=== PATIENT | male | born 1985 | race Caucasian/White ===

== ENCOUNTER 2017-08-10 03:10 | Observation (INO) ==
[2017-08-10] MEDS ORDERED: 0.9 % Sodium Chloride 1,000 ML ONE (03:21)
[2017-08-10] MEDS ORDERED: PROCAINAMIDE IVPB ONE (03:27)
[2017-08-10] MEDS ORDERED: D5 IVPB ONE (03:27)
[2017-08-10] MEDS ORDERED: WATER IVPB ONE (03:27)
[2017-08-10] MEDS ORDERED: 0.9 % Sodium Chloride 1,000 ML IVC ONE (03:31)
[2017-08-10] MEDS ORDERED: Ondansetron 4 MG/2 ML VIAL IVP ONE (03:38)
[2017-08-10] MEDS ORDERED: Ondansetron 4 MG/2 ML VIAL ONE (03:39)
[2017-08-10 04:11] LABS: Basophils # 0.1 K/mcL (0.0-0.2); Basophils % 0.4 %; Eosinophils # 0.4 K/mcL (0.0-0.6); Eosinophils % 2.7 %; Hematocrit 41.6 % (37.5-50.1); Hemoglobin 12.8 g/dL (12.9-16.9); Immature Granulocytes % 0.5 % (0-4); Lymphocytes # 4.3 K/mcL (0.6-4.6); Mean Corpuscular HGB Conc 30.8 g/dL (31.6-35.5); Mean Corpuscular Hemoglobin 21.1 pg (28.0-33.3); Mean Corpuscular Volume 68.6 fL (83.0-100.0); Mean Platelet Volume 10.2 fL (9.4-12.4); Monocytes # 1.1 K/mcL (0.0-1.3); Monocytes % 8.4 %; Neutrophils # 7.6 K/mcL (1.6-8.9); Platelet Count 398 K/mcL (140-400); Red Blood Count 6.06 M/mcL (4.19-5.50); Red Cell Distribution Width 18.8 % (11.5-14.5)
[2017-08-10 04:24] LABS: INR 1.2; Prothrombin Time 12.8 Seconds (9.4-12.1)
[2017-08-10 04:25] LABS: Anisocytosis 1+ (Not Present); Hypochromasia Present (Not Present); Microcytosis Present (Not Present); Platelet Estimate Normal (Normal); Reactive Lymphocytes Present (Not Present)
[2017-08-10 04:27] LABS: Activated Partial Thrombo Time 42.2 Seconds (26.0-36.0)
[2017-08-10 04:30] LABS: Troponin I < 0.03 ng/mL (< 0.04)
[2017-08-10 04:31] LABS: BUN/Creatinine Ratio 15 (6-26); Blood Urea Nitrogen 17 mg/dL (6-20); Calcium 9.1 mg/dL (8.6-10.3); Carbon Dioxide 20 mEq/L (23-29); Chloride 104 mEq/L (98-107); Glucose 110 mg/dL (70-105); Magnesium 1.7 mg/dL (1.6-2.6); Osmolality,Calculated 286 (280-300); Sodium 137 mEq/L (136-145); eGFR For African Americans > 60 (> 60); eGFR For Non-African Americans > 60 (> 60)
--- NOTE | 2017-08-10 04:46 | Emergency Department Note ---
Disposition Clinical Impression: Paroxysmal SVT (supraventricular tachycardia), Hypokalemia Disposition: Admitted As Inpatient Condition: Fair General Adult HPI - General Chief complaint: ED Arrhythmia/Palpitations Stated complaint: SVT Time Seen by Provider: 08/10/17 03:25 Source: patient Limitations: no limitations Nursing Notes Reviewed: Yes Vital Signs Reviewed: Yes - History of Present Illness Pain Scale: 0 - Related Data Home Medications Medication Instructions Recorded Confirmed raNITIdine HCl [Zantac] 150 mg PO DAILY 08/10/17 08/10/17 Allergies Allergy/AdvReac Type Severity Reaction Status Date / Time No Known Allergies Allergy Verified 10/27/15 07:36 Past Medical History - Past Medical History Medical history: Reports: GERD, other Surgical history: Reports: other Psychiatric history: Reports: no psych history - Social History Smoking Status: Light tobacco smoker Alcohol use: Reports: none Drug use: Reports: none Physical Exam - General Limitations: no limitations General appearance: alert Course Vital Signs Temperature 97.4 F L 08/10/17 03:28 Pulse Rate 133 08/10/17 03:28 Respiratory Rate 20 08/10/17 03:28 Blood Pressure 123/81 08/10/17 03:28 O2 Sat by Pulse Oximetry 100 08/10/17 03:28 Temperature 99 F 08/10/17 07:13 Pulse Rate 97 08/10/17 07:13 Respiratory Rate 16 08/10/17 07:13 Blood Pressure 130/83 08/10/17 07:13 O2 Sat by Pulse Oximetry 100 08/10/17 07:13 Oxygen Delivery Oxygen Delivery Nasal Cannula Medical Decision Making - Lab Data Result diagrams: 08/10/17 03:24 08/10/17 03:24 Lab Results 08/10/17 08/10/17 08/10/17 Range/Units 03:24 03:24 03:24 WBC 13.5 H (4.3-11.1) K/mcL RBC 6.06 H (4.19-5.50) M/mcL Hgb 12.8 L (12.9-16.9) g/dL Hct 41.6 (37.5-50.1) % MCV 68.6 L (83.0-100.0) fL MCH 21.1 L (28.0-33.3) pg MCHC 30.8 L (31.6-35.5) g/dL RDW 18.8 H (11.5-14.5) % Plt Count 398 (140-400) K/mcL MPV 10.2 (9.4-12.4) fL Immature Gran % 0.5 (0-4) % Seg Neutrophils % 56.0 % Lymphocytes % 32.0 % Monocytes % 8.4 % Eosinophils % 2.7 % Basophils % 0.4 % Neutrophils # 7.6 (1.6-8.9) K/mcL Lymphocytes # 4.3 (0.6-4.6) K/mcL Monocytes # 1.1 (0.0-1.3) K/mcL Eosinophils # 0.4 (0.0-0.6) K/mcL Basophils # 0.1 (0.0-0.2) K/mcL Reactive Lymphocytes Present A (Not Present) Platelet Estimate Normal (Normal) Hypochromasia Present A (Not Present) Anisocytosis 1+ A (Not Present) Microcytosis Present A (Not Present) PT 12.8 H (9.4-12.1) Seconds INR 1.2 APTT 42.2 H (26.0-36.0) Seconds Sodium 137 (136-145) mEq/L Potassium 3.0 L (3.5-5.1) mEq/L Chloride 104 (98-107) mEq/L Carbon Dioxide 20 L (23-29) mEq/L BUN 17 (6-20) mg/dL Creatinine 1.17 (0.70-1.30) mg/dL Est GFR ( Amer) > 60 (> 60) Est GFR (Non-Af Amer) > 60 (> 60) BUN/Creatinine Ratio 15 (6-26) Glucose 110 H (70-105) mg/dL Calculated Osmolality 286 (280-300) Calcium 9.1 (8.6-10.3) mg/dL Magnesium 1.7 (1.6-2.6) mg/dL Troponin I < 0.03 (< 0.04) ng/mL TSH 3.620 (0.340-5.600) mcIU/mL Critical Care Time Critical Care Time: Yes Total Critical Care Time: 60 Attestation: Critical care performed: Time is exclusive of separately billable procedures. Time includes: direct patient care, patient reassessment, coordination of patient care, interpretation of data (laboratory data, radiology data, and respiratory data), review of patient's medical records, medical consultation and documentation of patient care. Procedures included in critical care time: Procedures excluded from critical care time: Attestation Statement - Attestation Attestation: I, Nuno Morales MD, personally evaluated this patient and discussed their management with the resident physician. I reviewed the resident's note and agree with the documented findings, medical decision making, and plan of care. 31-year-old male presents to the emergency department for palpitations which started about one hour prior to arrival while patient was sitting at his computer. He states he went to the bathroom and he became very weak and faint and lightheaded and had to lie in the floor. She denies any actual syncope. He does complain of some pressure in his chest. Some diaphoresis. Mild shortness of breath. No prior diagnosis of any hypertension or heart disease. He does have Crohn's disease. He states he has a history of palpitations in the past with his heart racing but it normally only last a brief time and resolved. On examination patient is a well-developed obese male in mild distress. He is pale and mildly diaphoretic. No cyanosis. He is alert and oriented 3. Chest is nontender to palpation. Breath sounds are clear and equal bilaterally. Heart is markedly tachycardic and slightly irregular. Abdomen soft and nontender with normal bowel sounds. No pedal edema. Labs reviewed. Troponin normal. TSH normal. Chest x-ray shows cardiomegaly with clear lungs. Initial EKG shows what appears to be a sinus tachycardia with PACs and intermittent atrial fibrillation. Ventricular rate 116. No acute ischemic changes. On the air compressor engineer the patient's heart rate varied from 122 about 240. There appeared to be 3 separate complex morphologies. He had what appeared to be a narrow complex QRS with P waves. He also then appeared to have a narrow complex tachycardia which looks like SVT. He also intermittently had a wide- complex tachycardia which looked like ventricular tachycardia. Patient's blood pressure was stable on arrival and remained stable. Oxygen saturation 100%. Patient was given procainamide had a loading rate of 20 mg/m. Within a very short time his rhythm became much more regular with a sinus tachycardia with a ventricular rate around 105-110. The procainamide infusion was decreased down to 4 mg/m and titrated down to 1 mg/m. Dr. Armstrong discussed the case and the EKG and monitor tracings with the customer services manager conservation biology professor, Dr. Ken. The hospitalist, Dr. White, was consulted and accepted admission of the patient.
--- NOTE | 2017-08-10 04:48 | Emergency Department Note ---
Disposition Clinical Impression: Paroxysmal SVT (supraventricular tachycardia), Hypokalemia Disposition: Admitted As Inpatient Condition: Fair Time of Disposition: 04:52 Arrhythmia/Palpitations HPI - General Chief Complaint: ED Arrhythmia/Palpitations Stated Complaint: SVT Time Seen by Provider: 08/10/17 03:25 Source: patient Limitations: no limitations Nursing Notes Reviewed: Yes Vital Signs Reviewed: Yes - History of Present Illness HPI Narrative: Patient is a 31-year-old male who presents to [facility] ED with a chief complaint of heart racing. States he started having symptoms right around 2 AM. Admits to some nausea and dry heaving. No chest pain or difficulty breathing or abdominal pain. No problems with urination or bowel movements. States he has intermittently has had these symptoms in the past. However he has never been diagnosed with anything. States it usually goes away after a few seconds at this time has persisted. Patient states he did drink an energy drink at 10 AM yesterday. Denies any consumption of illicit drugs. Pt Subjective Complaint: "heart racing" Onset (ago): hour(s) Duration: intermittent Severity: moderate Context: occurred during rest Associated symptoms: Denies: chest pain, shortness of breath, nausea, vomiting - Related Data Home Medications Medication Instructions Recorded Confirmed raNITIdine HCl [Zantac] 150 mg PO DAILY 08/10/17 08/10/17 Allergies Allergy/AdvReac Type Severity Reaction Status Date / Time No Known Allergies Allergy Verified 10/27/15 07:36 All systems ED: reviewed and negative except as stated. Past Medical History - Past Medical History Attestation: Yes The following information was validated with the patient. Source: patient Medical history: Reports: GERD, other (Crohns) Surgical history: Reports: other Psychiatric history: Reports: no psych history - Social History Smoking Status: Light tobacco smoker Alcohol use: Reports: none Drug use: Reports: none Physical Exam - General Limitations: no limitations General appearance: alert - Head Head exam: atraumatic, normocephalic, normal inspection - Eye Eye exam: Present: normal appearance, PERRL, EOMI - ENT ENT exam: normal exam, normal oropharynx, mucous membranes moist - Neck Neck exam: Present: normal inspection, full ROM, trachea midline - Chest Chest inspection: Present: normal inspection, symmetric chest wall rise - Respiratory Respiratory exam: Present: normal lung sounds bilaterally - Cardiovascular Cardiovascular exam: Present: tachycardia, irregular rhythm - Abdominal Exam Abdominal exam: Present: soft, Non-Tender. Absent: tenderness, distention, guarding, rebound, rigidity - Extremities Exam Extremities exam: Present: normal inspection, full ROM. Absent: tenderness, pedal edema - Neurological Exam Neurological exam: Present: alert, oriented X3 - Psychiatric Psychiatric exam: Present: normal affect, normal mood - Skin Skin exam: Present: warm, dry, intact, normal color Course Course Narrative: Patient seen and examined. Upon my examination of the patient, he is going in and out of a narrow complex tachycardia. It appears to be paroxysmal SVT at times but then the QRS seems to white in at times as well. Then there are times where it is sinus tachycardia. Patient does feel poorly with lightheadedness feeling like he is about pass out whenever he goes into the tachyarrhythmia. With his initial EKG, there is some concern that there could be some upsloping of a delta wave. The decision was made to give procainamide. A 1000 mg initial dose was ordered. He was given 100 mg at a time over the course of 5 minutes. He received approximately 200 mg before we slowed this down to a 4 mg/m drip. I did discuss the dosing with the pharmacist Daquan. I also discussed the patient's management with booth manager Dr. Ken and sent him images of the EKGs and rhythm strips.. Patient's arrhythmia seemed to stabilize as a sinus tachycardia with a rate in the low 100s. Patient feeling much better as well. Patient's blood pressure stable with systolic of 120s. Per Dr. Ken, he recommends weaning off the procainamide though we can leave a dose of 1 mg/m if needed. Cardiopulmonary workup pending - Reevaluation(s) Reevaluation #1: Lab work does show a low potassium of 3.0. 40 mEq of potassium ordered. I discussed the case with hospitalist Dr. White who has accepted patient for admission. Time: 04:50 Vital Signs Temperature 97.4 F L 08/10/17 03:28 Pulse Rate 133 08/10/17 03:28 Respiratory Rate 20 08/10/17 03:28 Blood Pressure 123/81 08/10/17 03:28 O2 Sat by Pulse Oximetry 100 08/10/17 03:28 Temperature 98.3 F 08/10/17 05:41 Pulse Rate 87 08/10/17 05:41 Respiratory Rate 18 08/10/17 05:41 Blood Pressure 121/80 08/10/17 05:41 O2 Sat by Pulse Oximetry 100 08/10/17 05:41 Oxygen Delivery Oxygen Delivery Nasal Cannula Arrhythmia/Palpitations - Medical Records Medical records reviewed: Yes I reviewed the patient's medical records. - Lab Data Lab results reviewed: Yes I reviewed the patient's lab results. Result diagrams: 08/10/17 03:24 08/10/17 03:24 Lab Results 08/10/17 08/10/17 08/10/17 Range/Units 03:24 03:24 03:24 WBC 13.5 H (4.3-11.1) K/mcL RBC 6.06 H (4.19-5.50) M/mcL Hgb 12.8 L (12.9-16.9) g/dL Hct 41.6 (37.5-50.1) % MCV 68.6 L (83.0-100.0) fL MCH 21.1 L (28.0-33.3) pg MCHC 30.8 L (31.6-35.5) g/dL RDW 18.8 H (11.5-14.5) % Plt Count 398 (140-400) K/mcL MPV 10.2 (9.4-12.4) fL Immature Gran % 0.5 (0-4) % Seg Neutrophils % 56.0 % Lymphocytes % 32.0 % Monocytes % 8.4 % Eosinophils % 2.7 % Basophils % 0.4 % Neutrophils # 7.6 (1.6-8.9) K/mcL Lymphocytes # 4.3 (0.6-4.6) K/mcL Monocytes # 1.1 (0.0-1.3) K/mcL Eosinophils # 0.4 (0.0-0.6) K/mcL Basophils # 0.1 (0.0-0.2) K/mcL Reactive Lymphocytes Present A (Not Present) Platelet Estimate Normal (Normal) Hypochromasia Present A (Not Present) Anisocytosis 1+ A (Not Present) Microcytosis Present A (Not Present) PT 12.8 H (9.4-12.1) Seconds INR 1.2 APTT 42.2 H (26.0-36.0) Seconds Sodium 137 (136-145) mEq/L Potassium 3.0 L (3.5-5.1) mEq/L Chloride 104 (98-107) mEq/L Carbon Dioxide 20 L (23-29) mEq/L BUN 17 (6-20) mg/dL Creatinine 1.17 (0.70-1.30) mg/dL Est GFR ( Amer) > 60 (> 60) Est GFR (Non-Af Amer) > 60 (> 60) BUN/Creatinine Ratio 15 (6-26) Glucose 110 H (70-105) mg/dL Calculated Osmolality 286 (280-300) Calcium 9.1 (8.6-10.3) mg/dL Magnesium 1.7 (1.6-2.6) mg/dL Troponin I < 0.03 (< 0.04) ng/mL TSH 3.620 (0.340-5.600) mcIU/mL - Radiology Data Radiology results reviewed: Yes I reviewed the patient's radiology results. Chest X-Ray 08/10/17 03:31 IMPRESSION: Cardiomegaly with clear lungs. D/ / Addy Yung MD / Addy Yung MD Interpreting Provider: Addy Yung MD - EKG Data EKG attestation: Yes I reviewed and interpreted this EKG. EKG results narrative: EKG done at 311 shows sinus tachycardia with occasional narrow complex tachycardia that is intermittent. No acute ST elevation or depression noted. Normal axis. Possible delta wave noted in lead aVF. Repeat EKG done at 357 shows sinus tachycardia with a rate of [address] elevation or depression. Normal axis. Q waves noted in lead 3.
[2017-08-10] MEDS ORDERED: Acetaminophen 325 MG TABLET PO PRN (05:47)
[2017-08-10] MEDS ORDERED: Naloxone 0.4 MG/ML INJ IVP PRN (05:47)
[2017-08-10] MEDS ORDERED: D5 IVC SCH (06:00)
[2017-08-10] MEDS ORDERED: WATER IVC SCH (06:00)
[2017-08-10] MEDS ORDERED: PROCAINAMIDE IVC SCH (06:00)
--- NOTE | 2017-08-10 06:07 | Internal Med History&Physical ---
Date of Encounter: 08/10/17 Time of Encounter: 05:00 Internal Medicine - H&P: HPI Chief complaint: Palpitation Admitted From: Home Plans for Post Hospital Care: Home History of present illness: Mr. Mcrae is a 31 year old male presented to ER for sudden onset palpitation since 2 AM this morning. Past medical history is significant for Crohn disease. Patient said since 2 AM this morning he suddenly have palpitation with heart rate around 200. Patient failed business, nausea, and vomited several times. The vomiting are clear liquid, no dark color or blood in it. EMS was called and the patient was sent to ER. Patient denies recent runny nose, sore throat, cough, or fever. In the emergency room, patient wa found narrow QRS tachycardia. Suggest SVT. Cardiology was consult. Patient was started on procainamide IV. His heart rate slowed down and the shows sinus rhythm on monitoring and the patient feels much better. Patient was admitted for further management. Past Med Surg Social Fam HX - Past Medical History Medical history: GERD, other (Crohns) Additional medical history: Crohns Diseas Psychiatric history: no psych history - Past Surgical History Surgical History: other Additional surgical history: cyst removed from tailbone, colonoscopy - Social History Smoking Status: Light tobacco smoker Alcohol use: none Drug use: none - Family History Mother History Unknown: Yes Internal Medicine - H&P: Meds raNITIdine HCl [Zantac] 150 mg PO DAILY 08/10/17 [History] 3 Allergy/AdvReac Type Severity Reaction Status Date / Time No Known Allergies Allergy Verified 10/27/15 07:36 All Systems PM: A 10-system review of systems was performed and is negative for pertinent findings except as documented above in the HPI. - Constitutional Vitals: Temp Pulse Resp BP Pulse Ox 98.3 F 87 18 121/80 100 08/10/17 05:41 08/10/17 05:41 08/10/17 05:41 08/10/17 05:41 08/10/17 05:41 General appearance: Present: A&O X 3, no acute distress, answers questions appropriately - Head Head exam: Present: atraumatic, normocephalic - Eye Eye exam: Present: PERRL, conjuntiva pink, sclera anicteric Pupils: Present: PERRL - Neck Neck exam general surgery: Present: supple, trachea midline. Absent: lymphadenopathy - Respiratory Respiratory exam: Present: CTAB. Absent: accessory muscle use, rales, rhonchi, wheezes - Cardiovascular Cardiovascular exam: Present: RRR, +S1, +S2, tachycardia. Absent: diastolic murmur, gallop, rubs, systolic murmur - GI/Abdominal GI/Abdominal exam: Present: normal bowel sounds, soft, no peritoneal signs. Absent: distended, tenderness - Extremities Exam Extremities exam: Present: warm, radial pulses palpable and symmetrical. Absent : calf tenderness, cyanotic, pedal edema - Neurological Exam Neurological exam: Present: CN II-XII intact, oriented X3, no focal deficits. Absent: pronater drift, facial droop, speech deficit - Skin Skin exam: Present: dry, intact Internal Med - H&P Results - Labs CBC & Chem 7: 08/10/17 03:24 08/10/17 03:24 - Assessment and plan (1) DVT prophylaxis Current Visit: Yes Status: Acute Assessment and plan: EPCDs (2) Crohn disease Current Visit: Yes Status: Acute Assessment and plan: Continue outpatient follow-up Qualifiers: Gastrointestinal tract location: unspecified location Digestive disease complication type: without complication Qualified Code(s): K50.90 - Crohn's disease, unspecified, without complications (3) Hypokalemia Current Visit: Yes Status: Acute Assessment and plan: Probably due to chronic diarrhea caused by crohn disease. Supplement 40 mEq has been given by ER. Will give another 40mEq after 3 hours (4) Paroxysmal SVT (supraventricular tachycardia) Current Visit: Yes Status: Acute Assessment and plan: Etiology is undetermined. Patient said he has palpitation and near syncope when he is 20-year-old. Patient denies family history of heart disease. - Place patient on continuous cardiac monitoring. - Continue procainamide drip at maintenance dose at 1 mg/min. - Echocardiogram - Correct electrolytes abnormality - Consult cardiology - Time Spent With Patient Total time spent is greater than 50% in coordination of care (as documented) at patient's floor/unit and/or counseling patient: 40 minutes Greater than 35 minutes
[2017-08-10] MEDS: Famotidine 20 MG TABLET PO SCH (07:52)
[2017-08-10] MEDS: Ondansetron 4 MG/2 ML VIAL IVP PRN ×2 (08:53→22:13)
--- NOTE | 2017-08-10 09:59 | Event Note ---
Date of Encounter: 08/10/17 Time of Encounter: 10:00 Seen and assessed. Agree with plan per night time hospitalist. 1.Admitted overnight for PSVT and started on procainamide drip. HR currrently in the low 100s. F/U 2D echo and cardiology recs 2. Also noted to have nausea and vomiting with leukocytosis possibly 2/2 to acute gastroenteritis. Administer IV fluids, start on IV metronidazole. Obtain blood cultures 3. Severe dehydration may be related to crohn's which patient says he 's not getting treated for due to no insurance. GI consult, obtain CT abdomen, start on IV steroids
[2017-08-10] MEDS ORDERED: Isovue-370 500 ML INFUS..BTL IV ONE (10:21)
[2017-08-10] MEDS: MethylPREDNISolone 40 MG/ML VIAL IVP SCH (11:54)
[2017-08-10] MEDS: 0.9 % Sodium Chloride 1,000 ML IVC SCH (11:55)
--- NOTE | 2017-08-10 11:55 | Cardiology Consult Note ---
Date of Encounter: 08/10/17 Time of Encounter: 11:52 Assessment and Plan (1) Paroxysmal SVT (supraventricular tachycardia) Current Visit: Yes Status: Acute PSVT in the setting of untreated Crohn's disease with associated chronic diarrhea. Presents with electrolyte abnormalities. In addition, patient has been drinking at least one energy drink per day over the last few weeks. Suspect SVT is worsened by all of these other features. Discussed the importance of treating Crohn's disease/improving diarrhea/ stabilizing electrolytes will help to minimize episodes of SVT. Patient strongly encouraged to minimize caffeine consumption and stop drinking energy drinks. Hydration with water or Gatorade encouraged. Stop procainamide. Start low-dose Cardizem CD 120 mg daily. Case discussed with IM. Recommend hydration, GI evaluation for Crohn's disease , replacement of electrolytes. Check TTE. We will continue to monitor. Discussion w patient/family: The assessment and plan as outlined above was discussed with the patient and/or family members who expressed understanding and agreement. All questions were answered. Thank you for involving us in the care of your patient. Please call with any questions. History of Present Illness Consult date: 08/10/17 Requesting physician: Court White Consult reason: Arrhythmia Chief complaint: Palpitations, diarrhea History of present illness: Mr. Mcrae is a 31 year old male with a history of untreated Crohn's disease. Reports up to 10 episodes of diarrhea per day. Unable to leave house or maintain a job due to diarrhea. Describes drinking 4-6 glasses of fluid per day. Reports drinking energy drinks on occasion, but has been drinking at least one per day over the last 12 days. Yesterday, noticed sudden palpitations. Describes several events over a short period of time. Describes associated lightheadedness, but no syncope. Describes discomfort in his chest during periods of tachycardia. Noted hypokalemia, hypomagnesemia. In the ER, noted to have periods of tachycardia arrhythmias. ER doctors started procainamide which seemed to improve his symptoms. Upon my review, patient demonstrates sinus rhythm with frequent periods of SVT, probable atrial tachycardia. 2 episodes of wide complex arrhythmias noted, possibly SVT with aberration, but cannot exclude NSVT. Past Med Surg Social Fam HX - Past Medical History Medical history: GERD, other Additional medical history: Crohns Diseas Psychiatric history: no psych history - Past Surgical History Surgical History: other Additional surgical history: cyst removed from tailbone, colonoscopy - Social History Smoking Status: Light tobacco smoker Alcohol use: none Drug use: none - Family History Mother History Unknown: Yes Medications and Allergies raNITIdine HCl [Zantac] 150 mg PO DAILY 08/10/17 [History] 3 Allergy/AdvReac Type Severity Reaction Status Date / Time No Known Allergies Allergy Verified 10/27/15 07:36 All Systems Review: The remainder of the systems were reviewed and are negative - Constitutional Constitutional: anorexia, fatigue, weakness - Cardiovascular Cardiovascular: as per HPI, lightheadedness, palpitations, rapid heart rate - Gastrointestinal Gastrointestinal: abdominal pain, diarrhea Physical Examination General: Conversant, No Apparent Distress HEENT: Atraumatic, Normocephaly, Mucus Membranes Moist Neck: No JVD, Normal carotid pulses Cardiac: Reg Rate and Rhythm, Normal S1 and S2, No Murmur Lungs: Normal Breath Sounds, No Wheeze, Rales, Rhonchi Neuro: Alert and responsive, No focal deficits noted Abdomen: Soft, Non-Tender, Other (Obese) Skin: No rashes noted on visualized skin Musculoskeletal: No Chest Wall Tenderness Extremities: No Clubbing, No Edema, Normal Pulses Results 08/10/17 03:24 08/10/17 03:24 - EKG Interpretation EKG results cardiology: personally reviewed Consult Discharge Plan - Plan Referrals: NONE,PCP [Primary Care Provider] -
--- NOTE | 2017-08-10 12:15 | Gastroenterology Consult Note ---
Date of Encounter: 08/10/17 Time of Encounter: 12:00 - Assessment and plan (1) Crohn disease Current Visit: Yes Status: Acute Assessment and plan: Patient with questionable of a history of Crohn disease currently not on any medication because of not working and not having insurance. He has 10-15 bowel movements but for the last few years. Colonoscopy by Dr. Bates in 2015 showed inflammation from the sigmoid colon to the cecum and also in the terminal ileum and the biopsy showing chronic inflammation suspicious for Crohn. Diarrhea did responded to steroids in the past but not budesonide. Currently not on any medication. Recommendation: IV steroids and once related to be discharged then switched to oral and follow with GI as an outpatient he will need a colonoscopy repeat with TI examination and possible capsule endoscopy. Qualifiers: Gastrointestinal tract location: unspecified location Digestive disease complication type: without complication Qualified Code(s): K50.90 - Crohn's disease, unspecified, without complications (2) Anemia Current Visit: Yes Status: Acute Assessment and plan: Patient hemoglobin is around 12 and his MCV is also low we will check iron panel along with ferritin. Qualifiers: Anemia type: iron deficiency Qualified Code(s): D50.0 - Iron deficiency anemia secondary to blood loss (chronic) - Time Spent With Patient Total time spent is greater than 50% in coordination of care (as documented) at patient's floor/unit and/or counseling patient: GI History of Present Illness - Data of Consult Requesting Physician: Court White MD - Consult Narrative Reason for consult: Crohn's flare History of present illness: Mr. Mcrae is a 31 year old male admitted because of SVT episode with the near -syncope. being seen by cardiology. Patient with questionable history of Crohn disease .Endoscopy in October [address] Bates showed Inflammation from the sigmoid colon to the cecum.Biopsies of small bowel and colon showed acute and chronic inflammation. Then was treated with prednisone did offer relief but he states he experienced chest pain. B ASCA and ANCA were negative. Stool calpo more than 600 and is a celiac panel was negative. Has been tried symptomatically for the diarrhea with cholestyramine and also Bentyl. Per patient because of no insurance and not working he currently is not on any medication. Currently is having 10-15 bowel movements a day and he does has some blood in his stool which he contributes to have his hemorrhoids. Does complain of having some abdominal discomfort. Last night he had an episode where he felt that his heart was racing he was about to pass out and he called an ambulance and ended up coming to the hospital. Per The patient on and off he is having these episodes where he feels like his heart is racing Past Med Surg Social Fam HX - Past Medical History Medical history: GERD, other Additional medical history: Crohns Diseas Psychiatric history: no psych history - Past Surgical History Surgical History: other Additional surgical history: cyst removed from tailbone, colonoscopy - Social History Smoking Status: Light tobacco smoker Alcohol use: none Drug use: none - Family History Mother History Unknown: Yes Review of Systems: GI: as per JAMUL GENERAL: denies fever, EYES: denies yellow discoloration ENT: some discomfort with swallowing CARDIO: as per JAMUL RESP: Shortness of breath last night when his heart was racing : denies change in color of urine NEURO: denies any weakness HEME: Denies any bruising MS: Does complain of chronic arthralgia but per patient that is probably because of his weight DERM: denies rash or itching PSYCH: Denies history of anxiety or depression - Constitutional Vitals: Temp Pulse Resp BP Pulse Ox 99.6 F 99 16 128/86 99 08/10/17 11:58 08/10/17 11:58 08/10/17 11:58 08/10/17 11:58 08/10/17 11:58 Exam: CONSTITUTIONAL:~alert, no acute distress.~HEAD:~normocephalic.~EYES:~no jaundice.~NECK:~no obvious swelling.~HEART:~regular rate and rhythm, no murmurs. ~LUNGS:~bilateral good air entry.~ABDOMEN:~non distended, soft, non tander, no masses pulpable, no organomegaly.~RECTAL EXAM:~Deferred.~EXTREMITIES:~no clubbing, cyanosis or edema.~SKIN:~no stigmata of chronic liver disease.~ NEUROLOGIC:~no obvious focal defect.~~~~ Results - Labs CBC & Chem 7: 08/10/17 03:24 08/10/17 03:24 Labs: Last Result Calcium 9.1 mg/dL (8.6-10.3) 08/10/17 03:24 Troponin I < 0.03 ng/mL (< 0.04) 08/10/17 03:24 Entire Visit Hgb 12.8 g/dL (12.9-16.9) L 08/10/17 03:24 Hct 41.6 % (37.5-50.1) 08/10/17 03:24 PT 12.8 Seconds (9.4-12.1) H 08/10/17 03:24 - ABG ABG results: PT/INR, D-dimer PT 12.8 Seconds (9.4-12.1) H 08/10/17 03:24 Consult Discharge Plan - Plan Referrals: NONE,PCP [Primary Care Provider] -
[2017-08-10] MEDS: Diltiazem CD (24hr) 120 MG CAPSULE PO SCH (13:23)
[2017-08-10 13:38] LABS: Adenovirus F 40/41 PCR Not detected (Not detect); Astrovirus PCR Not detected (Not detect); C.difficile Toxin A/B by PCR See reflex test (Not detect); Campylobacter by PCR Not detected (Not detect); Cryptosporidium by PCR Not detected (Not detect); Cyclospora cayetanensis PCR Not detected (Not detect); E. coli O157 by PCR Not detected (Not detect); Entamoeba histolytica PCR Not detected (Not detect); Enteroaggregative E.coli(EAEC) Not detected (Not detect); Enteropathogenic E.coli(EPEC) Not detected (Not detect); Enterotoxigenic E.coli (ETEC) Not detected (Not detect); Giardia lamblia PCR Not detected (Not detect); Norovirus GI/GII PCR Not detected (Not detect); Plesiomonas shigelloides PCR Not detected (Not detect); Rotavirus A PCR Not detected (Not detect); Salmonella PCR Not detected (Not detect); Sapovirus PCR Not detected (Not detect); Shig/EnteroinvasiveE coli EIEC Not detected (Not detect); Shigalike tox-prod E coli STEC Not detected (Not detect); Vibrio PCR Not detected (Not detect); Vibrio cholerae PCR Not detected (Not detect); Yersinia enterocolitica PCR Not detected (Not detect)
[2017-08-10] MEDS: Vancomycin Oral Soln 125 MG/2.5 ML UDC PO SCH ×3 (15:38→22:06)
[2017-08-10] MEDS ORDERED: MetroNIDAZOLE 500 MG/100 ML 500 MG/100 ML BAG IVPB SCH (16:00)
[2017-08-11] MEDS: 0.9 % Sodium Chloride 1,000 ML IVC SCH ×3 (00:05→21:57)
[2017-08-11 04:04] LABS: Basophils % 0.2 %; Eosinophils % 0.1 %; Immature Granulocytes % 1.1 % (0-4); Lymphocytes # 2.4 K/mcL (0.6-4.6); Lymphocytes % 14.7 %; Mean Corpuscular HGB Conc 30.8 g/dL (31.6-35.5); Mean Corpuscular Hemoglobin 21.3 pg (28.0-33.3); Mean Corpuscular Volume 69.1 fL (83.0-100.0); Mean Platelet Volume 10.2 fL (9.4-12.4); Monocytes # 1.3 K/mcL (0.0-1.3); Monocytes % 7.8 %; Neutrophils # 12.3 K/mcL (1.6-8.9); Platelet Count 343 K/mcL (140-400); Red Blood Count 5.64 M/mcL (4.19-5.50); Red Cell Distribution Width 18.6 % (11.5-14.5); Segmented Neutrophils % 76.1 %
[2017-08-11 04:26] LABS: BUN/Creatinine Ratio 12 (6-26); Blood Urea Nitrogen 12 mg/dL (6-20); Calcium 8.9 mg/dL (8.6-10.3); Carbon Dioxide 20 mEq/L (23-29); Chloride 108 mEq/L (98-107); Glucose 120 mg/dL (70-105); Magnesium 2.1 mg/dL (1.6-2.6); Osmolality,Calculated 285 (280-300); Potassium 4.4 mEq/L (3.5-5.1); Sodium 137 mEq/L (136-145); eGFR For African Americans > 60 (> 60); eGFR For Non-African Americans > 60 (> 60)
[2017-08-11 04:36] LABS: Anisocytosis 1+ (Not Present); Hypochromasia Present (Not Present); Microcytosis Present (Not Present); Platelet Estimate Normal (Normal); Poikilocytosis 1+ (Not Present)
[2017-08-11] MEDS: Vancomycin Oral Soln 125 MG/2.5 ML UDC PO SCH ×4 (09:16→21:39)
[2017-08-11] MEDS: Diltiazem CD (24hr) 120 MG CAPSULE PO SCH (09:17)
[2017-08-11] MEDS: Famotidine 20 MG TABLET PO SCH (09:17)
[2017-08-11] MEDS: MethylPREDNISolone 40 MG/ML VIAL IVP SCH (09:17)
--- NOTE | 2017-08-11 09:20 | Internal Med Progress Note ---
Date of Encounter: 08/11/17 Time of Encounter: 09:20 - Assessment and plan (1) C. difficile diarrhea Current Visit: Yes Status: Acute Assessment and plan: Diarrhea with acute c diff infection. Continue on po vancomycin (2) Crohn disease Current Visit: Yes Status: Acute Assessment and plan: Untreated crohn's disease with likely Crohn;s flare. patient complains of daily diarrhea with occasional blood. also has active c diff infection. seen by Gi and started on daily steroids which will be tapere. will need outpatient colonoscopy as well as social work assistance for insurance for crohn's meds Qualifiers: Gastrointestinal tract location: unspecified location Digestive disease complication type: without complication Qualified Code(s): K50.90 - Crohn's disease, unspecified, without complications (3) Paroxysmal SVT (supraventricular tachycardia) Current Visit: Yes Status: Acute Assessment and plan: Possibly 2/2 to severe dehydration from daily diarrhea with untreated crohn's disease, c. diff colitis and excessive caffeine intake. Has been seen by cardiology. was initially started on procainamide drip which has been transitioned to po cardizem. Replete electrolytes. Echo showed normal wall motion with EF of 65%. Cardiology following (4) Hypokalemia Current Visit: Yes Status: Acute Assessment and plan: Replaced (5) DVT prophylaxis Current Visit: Yes Status: Acute Assessment and plan: EPCDs - Time Spent With Patient Total time spent is greater than 50% in coordination of care (as documented) at patient's floor/unit and/or counseling patient: - Subjective Interval history: No acute events overnight - Constitutional Vitals: Temp Pulse Resp BP Pulse Ox 98 F 81 16 117/82 95 08/11/17 06:48 08/11/17 06:48 08/11/17 06:48 08/11/17 06:48 08/11/17 06:48 General appearance: Present: A&O X 3, no acute distress, answers questions appropriately - Head Head exam: Present: atraumatic, normocephalic - Eye Eye exam: Present: PERRL, conjuntiva pink, sclera anicteric Pupils: Present: PERRL - Neck Neck exam general surgery: Present: supple, trachea midline. Absent: lymphadenopathy - Respiratory Respiratory exam: Present: CTAB. Absent: accessory muscle use, rales, rhonchi, wheezes - Cardiovascular Cardiovascular exam: Present: RRR, +S1, +S2. Absent: diastolic murmur, gallop, rubs, systolic murmur - GI/Abdominal GI/Abdominal exam: Present: normal bowel sounds, soft, no peritoneal signs. Absent: distended, tenderness - Extremities Exam Extremities exam: Present: warm, radial pulses palpable and symmetrical. Absent : calf tenderness, cyanotic, pedal edema - Neurological Exam Neurological exam: Present: CN II-XII intact, oriented X3, no focal deficits. Absent: pronater drift, facial droop, speech deficit - Skin Skin exam: Present: dry, intact Internal Medicine: Result - Labs CBC & Chem 7: 08/11/17 03:52 08/11/17 03:52 Labs: Short CBC 08/11/17 Range/Units 03:52 WBC 16.2 H (4.3-11.1) K/mcL Hgb 12.0 L (12.9-16.9) g/dL Hct 39.0 (37.5-50.1) % Plt Count 343 (140-400) K/mcL Neutrophils # 12.3 H (1.6-8.9) K/mcL BMP 08/11/17 03:52 Sodium 137 Potassium 4.4 Chloride 108 H Carbon Dioxide 20 L BUN 12 Creatinine 1.01 Glucose 120 H Calcium 8.9 - ABG Interpretation ABG results: PT/INR, D-dimer PT 12.8 Seconds (9.4-12.1) H 08/10/17 03:24 - Impressions Impressions Echocardiogram 08/10/17 05:57 Impressions: LVEF 65%. Normal LV chamber size, wall thickness and function. Mild left ventricular diastolic dysfunction. Normal right ventricular structure and function. No evidence of pulmonary hypertension. No significant valvular dysfunction. Left Ventricular Wall Motion: Rest Echo Findings All wall segments showed normal motion. Findings: Study Quality * Technically adequate exam. ECG Findings * Normal sinus rhythm. Left Ventricle * LVEF 65%. * Normal LV chamber size, wall thickness and function. * Mild left ventricular diastolic dysfunction. Right Ventricle * Normal right ventricular structure and function. Left Atrium * Mildly dilated left atrium. Right Atrium * Mildly dilated right atrium. Aortic Valve * Trileaflet aortic valve with normal function. * No aortic regurgitation. * No aortic stenosis. Mitral Valve * Normal mitral valve structure and function. * No mitral regurgitation. * No mitral stenosis. Tricuspid Valve * Normal tricuspid valve structure and function. * Trace tricuspid regurgitation. * No evidence of pulmonary hypertension. Pulmonic Valve * Normal pulmonic valve structure and function. * No pulmonic regurgitation. Aorta * Normally sized aortic root. Pericardium * The pericardium appears normal. IVC * Normal IVC dimensions and inspiratory collapse. Pulmonary Artery * Normal visualized portions of the main pulmonary artery. Abdomen/Pelvis CT 08/10/17 10:21 IMPRESSION: No acute findings. No definite small bowel abnormality. Diffuse increased submucosal fat is seen throughout the colon suggesting chronic colitis. D/ / 08/10/2017 14:41:07 Everton Tucker MD / Emma Pastrana Interpreting Provider: Everton Tucker MD Consult Discharge Plan - Plan Referrals: NONE,PCP [Primary Care Provider] -
[2017-08-11 12:13] LABS: % Iron Saturation 14 % (20-55); Iron 49 mcg/dL (65-175); Transferrin 244 mg/dL (203-362)
--- NOTE | 2017-08-11 12:25 | Cardiology Progress Note ---
Date of Encounter: 08/11/17 Time of Encounter: 12:21 Assessment and Plan (1) Paroxysmal SVT (supraventricular tachycardia) Current Visit: Yes Status: Acute PSVT in the setting of untreated Crohn's disease with associated chronic diarrhea. Likely worsened by energy drinks, which he has been drinking daily. Overall, no arrhythmias since IV hydration and supportive medical therapy. TTE reviewed and demonstrates normal cardiac structure and function. No further inpatient cardiology testing appears to be necessary. Continue Cardizem CD 120 mg daily. Cardiology will sign off. Please call with any questions or concerns. Discussion w patient/family: The assessment and plan as outlined above was discussed with the patient and/or family members who expressed understanding and agreement. All questions were answered. Thank you for involving us in the care of your patient. Please call with any questions. Subjective Principal diagnosis: Palpitations Interval history: Patient seen and examined earlier today. Denied palpitations overnight. Overall, reports he is starting to feel better. Telemetry reviewed, no arrhythmias. Objective Vital Signs, Last 4 Hours Temp Pulse Resp BP Pulse Ox 08/11/17 11:28 98.4 F 85 16 106/81 97 General: Conversant, No Apparent Distress HEENT: Atraumatic, Normocephaly, Mucus Membranes Moist Neck: No JVD, Normal carotid pulses Cardiac: Reg Rate and Rhythm, Normal S1 and S2, No Murmur Lungs: Normal Breath Sounds, No Wheeze, Rales, Rhonchi Neuro: Alert and responsive, No focal deficits noted Abdomen: Soft, Non-Tender, Other (Obese) Skin: No rashes noted on visualized skin Musculoskeletal: No Chest Wall Tenderness Extremities: No Clubbing, No Cyanosis, No Edema Results 08/11/17 03:52 08/11/17 03:52 Lab Results 08/11/17 08/11/17 03:52 03:52 WBC 16.2 H Hgb 12.0 L Hct 39.0 Plt Count 343 Sodium 137 Potassium 4.4 Chloride 108 H Carbon Dioxide 20 L BUN 12 Creatinine 1.01 Glucose 120 H Calcium 8.9 Magnesium 2.1 - Imaging and Cardiology Echo: report reviewed - EKG Interpretation EKG results cardiology: personally reviewed Consult Discharge Plan - Plan Referrals: NONE,PCP [Primary Care Provider] -
--- NOTE | 2017-08-12 06:59 | Electrocardiograph Report ---
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
--- NOTE | 2017-08-12 07:02 | Electrocardiograph Report ---
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
--- NOTE | 2017-08-12 08:56 | Internal Med Progress Note ---
Date of Encounter: 08/12/17 Time of Encounter: 09:00 - Assessment and plan (1) C. difficile diarrhea Current Visit: Yes Status: Acute Assessment and plan: Diarrhea with acute c diff infection. Continue on po vancomycin. Monitor WBC. Patient is however on IV steroids (2) Crohn disease Current Visit: Yes Status: Acute Assessment and plan: Untreated crohn's disease with likely Crohn;s flare. patient complains of daily diarrhea with occasional blood. also has active c diff infection. Seen by GI and started on IV steroids which will be tapere to po on discharge. Plan on 2 week tapering course.will need outpatient colonoscopy as well as social work assistance for insurance for crohn's meds Qualifiers: Gastrointestinal tract location: unspecified location Digestive disease complication type: without complication Qualified Code(s): K50.90 - Crohn's disease, unspecified, without complications (3) Paroxysmal SVT (supraventricular tachycardia) Current Visit: Yes Status: Acute Assessment and plan: Possibly 2/2 to severe dehydration from daily diarrhea with untreated crohn's disease, c. diff colitis and excessive caffeine intake. Has been seen by cardiology. was initially started on procainamide drip which has been transitioned to po cardizem. Replete electrolytes. Echo showed normal wall motion with EF of 65%. Cardiology following (4) Hypokalemia Current Visit: Yes Status: Acute Assessment and plan: Replaced (5) DVT prophylaxis Current Visit: Yes Status: Acute Assessment and plan: EPCDs - Time Spent With Patient Total time spent is greater than 50% in coordination of care (as documented) at patient's floor/unit and/or counseling patient: - Subjective Interval history: No acute events overnight - Constitutional Vitals: Temp Pulse Resp BP Pulse Ox 98 F 67 16 124/91 96 08/12/17 07:12 08/12/17 07:12 08/12/17 07:12 08/12/17 07:12 08/12/17 07:12 General appearance: Present: A&O X 3, no acute distress, answers questions appropriately - Head Head exam: Present: atraumatic, normocephalic - Eye Eye exam: Present: PERRL, conjuntiva pink, sclera anicteric Pupils: Present: PERRL - Neck Neck exam general surgery: Present: supple, trachea midline. Absent: lymphadenopathy - Respiratory Respiratory exam: Present: CTAB. Absent: accessory muscle use, rales, rhonchi, wheezes - Cardiovascular Cardiovascular exam: Present: RRR, +S1, +S2. Absent: diastolic murmur, gallop, rubs, systolic murmur - GI/Abdominal GI/Abdominal exam: Present: normal bowel sounds, soft, no peritoneal signs. Absent: distended, tenderness - Extremities Exam Extremities exam: Present: warm, radial pulses palpable and symmetrical. Absent : calf tenderness, cyanotic, pedal edema - Neurological Exam Neurological exam: Present: CN II-XII intact, oriented X3, no focal deficits. Absent: pronater drift, facial droop, speech deficit - Skin Skin exam: Present: dry, intact Internal Medicine: Result - Labs CBC & Chem 7: 08/12/17 09:38 08/12/17 09:38 Labs: BMP 08/11/17 03:52 Sodium 137 Potassium 4.4 Chloride 108 H Carbon Dioxide 20 L BUN 12 Creatinine 1.01 Glucose 120 H Calcium 8.9 - ABG Interpretation ABG results: PT/INR, D-dimer PT 12.8 Seconds (9.4-12.1) H 08/10/17 03:24 - VTE Documentation of Mechanical Device: Intermittent pneumatic compression device Consult Discharge Plan - Plan Instructions: Diltiazem (By mouth), Prednisone (By mouth), Vancomycin (By mouth ), Supraventricular Tachycardia (DC), Crohn Disease (DC), Clostridium Difficile Infection (DC), Anemia (GEN), Crohn Disease, Knowledge Architect (GEN) Referrals: Bryan Wagner DO [Resident] - 08/19/17 10:00 am Prescriptions: Diltiazem CD (24hr) [Cardizem CD] 120 mg PO DAILY #60 cap.er.24h PredniSONE [Fabian] 5 mg PO DAILY #4 tablet. predniSONE [PredniSONE] 10 mg PO DAILY #4 tablet predniSONE [PredniSONE] 20 mg PO DAILY #4 tablet predniSONE [PredniSONE] 40 mg PO DAILY #8 tablet Vancomycin Oral Soln [Firvanq] 125 mg PO QID 8 Days #32 [facility] [place]
[2017-08-12] MEDS: Ondansetron 4 MG/2 ML VIAL IVP PRN (09:01)
[2017-08-12] MEDS: MethylPREDNISolone 40 MG/ML VIAL IVP SCH (09:02)
[2017-08-12] MEDS: Famotidine 20 MG TABLET PO SCH (09:02)
[2017-08-12] MEDS: Diltiazem CD (24hr) 120 MG CAPSULE PO SCH (09:02)
[2017-08-12] MEDS: 0.9 % Sodium Chloride 1,000 ML IVC SCH (09:05)
[2017-08-12] MEDS: Vancomycin Oral Soln 125 MG/2.5 ML UDC PO SCH (09:11)
--- NOTE | 2017-08-12 09:46 | Discharge Summary ---
Orders not resulted at time of discharge: Pending orders 08/10/17 10:43 Culture,Blood [BC] Routine 08/10/17 12:23 Calprotectin, Fecal Stat 08/12/17 08:49 BMP [Basic Metabolic Panel] Routine CBC [Complete Blood Count] [HEME] Routine Ferritin Routine Magnesium Routine Phosphorous Routine 08/13/17 04:00 Basic Metabolic Panel AM 0400 CBC [Complete Blood Count] [HEME] AM 0400 Magnesium AM 0400 08/14/17 04:00 Basic Metabolic Panel AM 0400 CBC [Complete Blood Count] [HEME] AM 0400 08/15/17 04:00 Basic Metabolic Panel AM 0400 CBC [Complete Blood Count] [HEME] AM 0400 08/16/17 04:00 Basic Metabolic Panel AM 0400 CBC [Complete Blood Count] [HEME] AM 0400 08/17/17 04:00 Basic Metabolic Panel AM 0400 CBC [Complete Blood Count] [HEME] AM 0400 08/18/17 04:00 Basic Metabolic Panel AM 0400 CBC [Complete Blood Count] [HEME] AM 0400 Date of Encounter: 08/12/17 Time of Encounter: 09:30 - Discharge Diagnosis (1) C. difficile diarrhea Priority: Primary Status: Acute Assessment and Plan: 31 year old male presented to ER for sudden onset palpitation since 2 AM this morning. Past medical history is significant for Crohn disease.Diarrhea with acute c diff infection. Patient said since 2 AM this morning he suddenly have palpitation with heart rate around 200. Patient had nausea, and vomited several times. EMS was called and the patient was sent to ER. In the emergency room, patient was found narrow QRS tachycardia and was started on procainamide drip. Cardiology was consulted. He was seen by cardiology the next day and assessed with Paroxysmal SVT which was thought possibly 2/2 to severe dehydration from diarrhea, consumption of caffeine and electrolyte abnormalities. He was taken off the procainamide drip and started on po cardizem which he tolerated. An echo was done which came back WNL. He will be discharged on oral cardizem. For his diarrhea, stool studies came back positive for c . difficile infection. He was started on oral vancomycin with improvement in his diarrhea. He also has untreated Crohn's disease due to not having insurance. He was seen by GI and assessed with a likely flare of his Crohn's disease and started on Iv steroids. He will be discharged on oral vancomycin, a steroid taper and will follow up with GI outpatient for a colonoscopy. 35 minutes was spent discharging this patient (2) Crohn disease Priority: Secondary Status: Acute Qualifiers: Gastrointestinal tract location: unspecified location Digestive disease complication type: without complication Qualified Code(s): K50.90 - Crohn's disease, unspecified, without complications (3) Paroxysmal SVT (supraventricular tachycardia) Priority: Secondary Status: Acute (4) Hypokalemia Priority: Secondary Status: Acute (5) DVT prophylaxis Priority: Secondary Status: Acute Hospital course: Mr. Mcrae is a 31 year old male - Time Spent with Patient Total time spent providing and/or coordinating discharge services: - Discharge Medications Prescriptions: Diltiazem CD (24hr) [Cardizem CD] 120 mg PO DAILY #60 cap.er.24h PredniSONE [Fabian] 5 mg PO DAILY #4 tablet. predniSONE [PredniSONE] 10 mg PO DAILY #4 tablet predniSONE [PredniSONE] 20 mg PO DAILY #4 tablet predniSONE [PredniSONE] 40 mg PO DAILY #8 tablet Vancomycin Oral Soln [Firvanq] 125 mg PO QID 8 Days #32 ud Home Medications: raNITIdine HCl [Zantac] 150 mg PO DAILY 08/10/17 [History] Diltiazem CD (24hr) [Cardizem CD] 120 mg PO DAILY #60 cap.er.24h 08/12/17 [Rx] PredniSONE [Fabian] 5 mg PO DAILY #4 tablet. 08/12/17 [Rx] Vancomycin Oral Soln [Firvanq] 125 mg PO QID 8 Days #32 udc 08/12/17 [Rx] predniSONE [PredniSONE] 10 mg PO DAILY #4 tablet 08/12/17 [Rx] predniSONE [PredniSONE] 20 mg PO DAILY #4 tablet 08/12/17 [Rx] predniSONE [PredniSONE] 40 mg PO DAILY #8 tablet 08/12/17 [Rx] Allergies/Adverse Reactions: 3 Allergy/AdvReac Type Severity Reaction Status Date / Time No Known Allergies Allergy Verified 10/27/15 07:36 Date of admission: 08/10/17 04:55 Primary care physician: PCP NONE Consults: 08/10/17 10:23 Consult to Gastroenterology [CONS] Routine Consulting Provider: Gastroenterology Yue Reason for Consult: crohn's disease Call Completed: Yes 08/10/17 18:47 Consult to Managed Care Nurse [CONS] Routine Reason for SW Consult: Patient has no health insurance - Constitutional Vitals: Temp Pulse Resp BP Pulse Ox 98 F 67 16 124/91 96 08/12/17 07:12 08/12/17 07:12 08/12/17 07:12 08/12/17 07:12 08/12/17 07:12 General appearance: Present: A&O X 3, no acute distress, answers questions appropriately - Head Head exam: Present: atraumatic, normocephalic - Eye Eye exam: Present: PERRL, conjuntiva pink, sclera anicteric Pupils: Present: PERRL - Neck Neck exam general surgery: Present: supple, trachea midline. Absent: lymphadenopathy - Respiratory Respiratory exam: Present: CTAB. Absent: accessory muscle use, rales, rhonchi, wheezes - Cardiovascular Cardiovascular exam: Present: RRR, +S1, +S2. Absent: diastolic murmur, gallop, rubs, systolic murmur - GI/Abdominal GI/Abdominal exam: Present: normal bowel sounds, soft, no peritoneal signs. Absent: distended, tenderness - Extremities Exam Extremities exam: Present: warm, radial pulses palpable and symmetrical. Absent : calf tenderness, cyanotic, pedal edema - Neurological Exam Neurological exam: Present: CN II-XII intact, oriented X3, no focal deficits. Absent: pronater drift, facial droop, speech deficit - Skin Skin exam: Present: dry, intact - Patient Status Disposition: Home, Self-Care Condition: Good - Discharge Instructions Instructions: Diltiazem (By mouth), Prednisone (By mouth), Vancomycin (By mouth ), Crohn Disease (DC), Clostridium Difficile Infection (DC), Crohn Disease, Information Security Engineer (GEN) Follow Up With: Bryan Wagner DO [Resident] - 08/19/17 10:00 am - VTE Documentation of Mechanical Device: Intermittent pneumatic compression device
[2017-08-12 09:52] LABS: Basophils % 0.3 %; Eosinophils # 0.2 K/mcL (0.0-0.6); Eosinophils % 1.4 %; Hematocrit 38.1 % (37.5-50.1); Hemoglobin 11.9 g/dL (12.9-16.9); Immature Granulocytes % 0.3 % (0-4); Lymphocytes # 3.2 K/mcL (0.6-4.6); Lymphocytes % 24.8 %; Mean Corpuscular HGB Conc 31.2 g/dL (31.6-35.5); Mean Corpuscular Hemoglobin 21.7 pg (28.0-33.3); Mean Corpuscular Volume 69.4 fL (83.0-100.0); Mean Platelet Volume 10.4 fL (9.4-12.4); Monocytes # 1.3 K/mcL (0.0-1.3); Monocytes % 10.1 %; Neutrophils # 8.2 K/mcL (1.6-8.9); Platelet Count 326 K/mcL (140-400); Red Blood Count 5.49 M/mcL (4.19-5.50); Red Cell Distribution Width 19.2 % (11.5-14.5); Segmented Neutrophils % 63.1 %
[2017-08-12 10:05] LABS: BUN/Creatinine Ratio 18 (6-26); Blood Urea Nitrogen 18 mg/dL (6-20); Calcium 8.8 mg/dL (8.6-10.3); Carbon Dioxide 24 mEq/L (23-29); Chloride 108 mEq/L (98-107); Glucose 98 mg/dL (70-105); Osmolality,Calculated 290 (280-300); Phosphorous 4.4 mg/dL (2.7-4.5); Sodium 139 mEq/L (136-145); eGFR For African Americans > 60 (> 60); eGFR For Non-African Americans > 60 (> 60)
[2017-08-12 10:11] LABS: Anisocytosis 2+ (Not Present); Microcytosis Present (Not Present); Platelet Estimate Normal (Normal)
[2017-08-12 11:34] VITALS: BP 139/87
[2017-08-12 15:52] LABS: Ferritin 18 ng/mL (20-250)
--- NOTE | 2017-08-13 17:16 | Electrocardiograph Report ---
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
== END 2017-08-12 15:25 | disposition home or self-care (01) ==
LOC: EMEROO 03:10 → 2NENU 03:10
PROVIDERS: ADMIT Internal Medicine; ATTEND Internal Medicine

== ENCOUNTER 2020-07-11 07:19 | Observation (INO) ==
[2020-07-11] MEDS ORDERED: Aspirin 81 MG TAB.CHEW PO ONE (07:23)
[2020-07-11] MEDS ORDERED: 0.9 % Sodium Chloride 1,000 ML IVC ONE (07:24)
[2020-07-11 07:45] LABS: Basophils % 0.3 %; Eosinophils # 0.3 K/mcL (0.0-0.6); Eosinophils % 2.3 %; Hematocrit 47.4 % (37.5-50.1); Hemoglobin 15.7 g/dL (12.9-16.9); Immature Granulocytes % 0.3 % (0-4); Lymphocytes # 2.9 K/mcL (0.6-4.6); Lymphocytes % 23.9 %; Mean Corpuscular HGB Conc 33.1 g/dL (31.6-35.5); Mean Corpuscular Hemoglobin 26.8 pg (28.0-33.3); Mean Corpuscular Volume 80.9 fL (83.0-100.0); Mean Platelet Volume 10.8 fL (9.4-12.4); Monocytes # 1.6 K/mcL (0.0-1.3); Monocytes % 13.4 %; Neutrophils # 7.1 K/mcL (1.6-8.9); Platelet Count 237 K/mcL (140-400); Red Blood Count 5.86 M/mcL (4.19-5.50); Red Cell Distribution Width 15.7 % (11.5-14.5); Segmented Neutrophils % 59.8 %; White Blood Count 11.9 K/mcL (4.3-11.1)
[2020-07-11 07:51] LABS: VBG Ionized Calcium 1.15 mmol/L (1.15-1.35)
[2020-07-11 08:13] LABS: BUN/Creatinine Ratio 22 (6-26); Blood Urea Nitrogen 26 mg/dL (6-20); Calcium 9.3 mg/dL (8.6-10.3); Carbon Dioxide 25 mEq/L (23-29); Chloride 101 mEq/L (98-107); Glucose 102 mg/dL (70-105); Magnesium 1.8 mg/dL (1.6-2.6); Osmolality,Calculated 285 (280-300); Phosphorous 3.5 mg/dL (2.7-4.5); Potassium 4.1 mEq/L (3.5-5.1); Sodium 135 mEq/L (136-145); Troponin I < 0.03 ng/mL (< 0.04); eGFR For African Americans > 60 (> 60); eGFR For Non-African Americans > 60 (> 60)
[2020-07-11 08:27] LABS: Thyroid Stimulating Hormone 5.197 mcIU/mL (0.340-5.600)
[2020-07-11] MEDS: DilTIAZem 50 MG/50 ML IV.SOLN IVC SCH (09:09)
[2020-07-11 09:29] LABS: Amphetamine Screen,Urine Negative ng/mL (Cutoff=1000); Barbiturate Screen,Urine Negative ng/mL (Cutoff=200); Benzodiazepines Screen,Urine Negative ng/mL (Cutoff=200); Bilirubin,Urine Negative (Negative); Blood,Urine Negative (Negative); Cannabinoid Screen,Urine Negative ng/mL (Cutoff = 50); Clarity,Urine Clear (Clear); Cocaine Screen,Urine Negative ng/mL (Cutoff= 300); Color,Urine Colorless (Yellow); Glucose,Urine (UA) Normal (Normal); Ketones,Urine Negative (Negative); Leukocyte Esterase,Urine Negative (Negative); Nitrite,Urine Negative (Negative); Opiate Screen,Urine Negative ng/mL (Cutoff=300); Phencyclidine Screen,Urine Negative ng/mL (Cutoff=25); Protein,Urine Negative (Neg-Trace); Specific Gravity,Urine 1.008 (1.010-1.025); Urobilinogen,Urine Normal (Normal)
[2020-07-11 10:04] LABS: INR 1.2; Prothrombin Time 13.7 Seconds (9.4-12.1)
[2020-07-11 10:07] LABS: Activated Partial Thrombo Time 37.9 Seconds (26.0-36.0)
[2020-07-11] MEDS ORDERED: Naloxone 0.4 MG/ML INJ IVP PRN (10:14)
[2020-07-11] MEDS ORDERED: *HR* HYDROcodone/Acet 5/325 mg TABLET PO PRN (10:14)
[2020-07-11] MEDS ORDERED: Ondansetron 4 MG/2 ML VIAL IVP PRN (10:14)
[2020-07-11] MEDS ORDERED: Perflutren Lipid Microsphere 1.3 ML in 0.9 % Sodium Chloride 8.7 ML IVP PRN (10:18)
[2020-07-11] MEDS: DilTIAZem CD (24hr) 180 MG CAP.ER.24H PO SCH (15:28)
[2020-07-11] MEDS: Mesalamine 250 MG CAPSULE.ER PO SCH ×2 (17:41→22:18)
[2020-07-11] MEDS ORDERED: traZODone 50 MG TABLET PO SCH (21:00)
[2020-07-12 04:06] LABS: BUN/Creatinine Ratio 21 (6-26); Blood Urea Nitrogen 23 mg/dL (6-20); Calcium 8.7 mg/dL (8.6-10.3); Carbon Dioxide 29 mEq/L (23-29); Chloride 103 mEq/L (98-107); Glucose 94 mg/dL (70-105); Magnesium 2.1 mg/dL (1.6-2.6); Osmolality,Calculated 289 (280-300); Phosphorous 3.9 mg/dL (2.7-4.5); Potassium 4.3 mEq/L (3.5-5.1); Sodium 138 mEq/L (136-145); eGFR For African Americans > 60 (> 60); eGFR For Non-African Americans > 60 (> 60)
[2020-07-12 04:18] LABS: Basophils % 0.3 %; Eosinophils # 0.3 K/mcL (0.0-0.6); Eosinophils % 2.8 %; Hematocrit 43.6 % (37.5-50.1); Hemoglobin 14.4 g/dL (12.9-16.9); Immature Granulocytes % 0.3 % (0-4); Lymphocytes # 2.3 K/mcL (0.6-4.6); Mean Corpuscular Hemoglobin 26.8 pg (28.0-33.3); Mean Corpuscular Volume 81.2 fL (83.0-100.0); Mean Platelet Volume 11.2 fL (9.4-12.4); Monocytes # 0.9 K/mcL (0.0-1.3); Monocytes % 9.9 %; Neutrophils # 5.9 K/mcL (1.6-8.9); Platelet Count 219 K/mcL (140-400); Red Blood Count 5.37 M/mcL (4.19-5.50); Red Cell Distribution Width 15.4 % (11.5-14.5); Segmented Neutrophils % 62.7 %; White Blood Count 9.4 K/mcL (4.3-11.1)
[2020-07-12 06:32] VITALS: BP 121/80
[2020-07-12] MEDS: DilTIAZem 50 MG/50 ML IV.SOLN IVC SCH (07:38)
[2020-07-12] MEDS: Mesalamine 250 MG CAPSULE.ER PO SCH (07:38)
[2020-07-12] MEDS: DilTIAZem CD (24hr) 180 MG CAP.ER.24H PO SCH (07:39)
[2020-07-12] MEDS ORDERED: BuPROPion SR (12 HR) 150 MG TABLET PO SCH (09:00)
== END 2020-07-12 10:29 | disposition home or self-care (01) ==
LOC: EMEROOARM 07:19 → 2NENU 07:19 → SUATTDRO 10:33 → 2NENU 11:29
PROVIDERS: ADMIT Internal Medicine; ATTEND Internal Medicine